=== PATIENT | male | born 1975 | race Caucasian/White ===

== ENCOUNTER 2020-03-21 21:51 | Emergency (ER) | payer OTHER ==
[2020-03-21] MEDS ORDERED: IBUPROFEN 800 MG TABLET PO ONE (22:50)
--- NOTE | 2020-03-21 22:52 | ER Document Report ---
ED Medical Screen (RME) - General Chief Complaint: Foot Pain Stated Complaint: POSSIBLE LEFT FOOT INJURY Time Seen by Provider: 03/21/20 22:45 Information source: Patient Notes: Presents complaining of left foot pain with swelling that started this evening. Patient has a history of gout although does not feel that his symptoms are typical of when he has had gout flareups in the past. Patient denies any foot injury. I have greeted and performed a rapid initial assessment of this patient. A comprehensive ED assessment and evaluation of the patient, analysis of test results and completion of the medical decision making process will be conducted by additional ED providers. - Related Data Allergies/Adverse Reactions: No Known Allergies Allergy (Unverified 03/21/20 22:42) Physical Exam - Vital signs Vitals: Temp Pulse Resp BP Pulse Ox 98.5 F 104 H 18 147/80 H 95 03/21/20 22:28 03/21/20 22:28 03/21/20 22:28 03/21/20 22:28 03/21/20 22:28 - General General appearance: Appears well, Alert Notes: Left midfoot tenderness with 1+ edema and mild erythema Course - Vital Signs Vital signs: Temp Pulse Resp BP Pulse Ox 98.5 F 104 H 18 147/80 H 95 03/21/20 22:28 03/21/20 22:28 03/21/20 22:28 03/21/20 22:28 03/21/20 22:28
[2020-03-21 23:35] LABS: ABSOLUTE BASOPHILS # (AUTO) 0.1 10^3/uL (0.0-0.2); ABSOLUTE EOSINOPHILS # (AUTO) 0.1 10^3/uL (0.0-0.6); ABSOLUTE LYMPHOCYTES (AUTO) 1.1 10^3/uL (0.5-4.7); ABSOLUTE MONOCYTES (AUTO) 0.6 10^3/uL (0.1-1.4); ABSOLUTE NEUT (AUTO) 11.8 10^3/uL (1.7-8.2); BASOPHILS % (AUTO) 0.7 % (0-2); EOSINOPHILS % (AUTO) 0.8 % (0-6); HEMATOCRIT 40.4 % (37.9-51.0); HEMOGLOBIN 14.3 g/dL (13.5-17.0); LYMPHOCYTES % (AUTO) 8.1 % (13-45); MEAN CORPUSCULAR HEMOGLOBIN 30.5 pg (27.0-33.4); MEAN CORPUSCULAR HGB CONC 35.5 g/dL (32.0-36.0); MEAN CORPUSCULAR VOLUME 86 fl (80-97); MONOCYTES % (AUTO) 4.6 % (3-13); PLATELET COUNT 301 10^3/uL (150-450); RED BLOOD COUNT 4.68 10^6/uL (4.35-5.55); RED CELL DISTRIBUTION WIDTH 13.4 % (11.5-14.0); SEGMENTED NEUTROPHILS % (AUTO) 85.8 % (42-78); TOTAL CELLS COUNTED % (AUTO) 100 %; WHITE BLOOD COUNT 13.7 10^3/uL (4.0-10.5)
[2020-03-21 23:58] LABS: C-REACTIVE PROTEIN 14.4 mg/L (<10.0); URIC ACID 9.1 mg/dL (3.5-8.5)
--- NOTE | 2020-03-22 00:02 | RADIOLOGY REPORT (SQ) ---
Left foot x-ray three views on 03/21/2020 at 11:29 PM CLINICAL INDICATION: Left foot pain COMPARISON: None FINDINGS: Degenerative changes are noted in the head of the first metatarsal. There are no fractures. Visualized joints are well aligned. No other bony abnormality is noted. IMPRESSION: No acute abnormality.
[2020-03-22 00:27] LABS: ERYTHROCYTE SEDIMENTATION RATE 7 mm/hr (0-15)
[2020-03-22] MEDS ORDERED: KETOROLAC TROMETHAMINE 60 MG/2 ML SDV IM ONE (02:38)
[2020-03-22] MEDS ORDERED: OXYCODONE-ACETAMINOPHEN 5-325 MG TABLET PO ONE (02:38)
--- NOTE | 2020-03-22 02:52 | ER Document Report ---
ED Extremity Problem, Lower - General Chief Complaint: Foot Pain Stated Complaint: POSSIBLE LEFT FOOT INJURY Time Seen by Provider: 03/21/20 22:45 Notes: CHIEF COMPLAINT: Left foot pain HPI: 45-year-old male with history of gout presenting with left foot pain redness and swelling that began tonight. States he normally gets gout in the toes of the feet but states it is further up the foot. He took no medications at home other than one Aleve. Has not had fever. Denies diabetes. States that he does not have a primary care provider in this area. Denies other complaints ROS: See HPI - all other systems were reviewed and are otherwise negative Constitutional: no fever Integumentary: + rash Allergy: no hives Musculoskeletal: + extremity pain or swelling Neurological: no numbness/tingling, no weakness MEDICATIONS: I agree with the patient medications as charted by the RN. ALLERGIES: I agree with the allergies as charted by the RN. PAST MEDICAL HISTORY/PAST SURGICAL HISTORY: Reviewed and agree as charted by RN. SOCIAL HISTORY: Reviewed and agree as charted by RN. FAMILY HISTORY: No significant familial comorbid conditions directly related to patient complaint EXAM: Reviewed vital signs as charted by RN. CONSTITUTIONAL: Alert and oriented and responds appropriately to questions. Well-appearing; well-nourished HEAD: Normocephalic; atraumatic EYES: Conjunctivae clear, sclerae non-icteric ENT: normal nose; no rhinorrhea; moist mucous membranes NECK: Supple without meningismus CARD: symmetric distal pulses RESP: Normal chest excursion without splinting or tachypnea ABD/GI: non-distended BACK: The back appears normal EXT: Normal ROM in all joints; no cyanosis, no effusions, there is slight edema over the dorsal left foot more prominent over the great toe distal metatarsal region. Mild tenderness on palpation no induration or fluctuant regions. Dorsalis pedis and posterior tibial pulses are present in the left foot and ankle. Sensation is intact in the toes with capillary refill less than 3 seconds SKIN: Normal color for age and race; warm; dry; good turgor; there is erythema overlying the distal dorsal and medial left foot NEURO: Moves all extremities equally; Motor and sensory function intact PSYCH: The patient's mood and manner are appropriate. Grooming and personal hygiene are appropriate. MDM: 45-year-old male history of gout presenting with left foot pain redness and swelling consistent with gout. Uric acid and CRP both mildly elevated. Low suspicion for cellulitis given the abrupt onset. Will place patient on pain medication and Indocin refer to primary care locally - Related Data Allergies/Adverse Reactions: No Known Allergies Allergy (Unverified 03/21/20 22:42) Past Medical History - General Information source: Patient - Social History Smoking Status: Never Smoker Family History: Reviewed & Not Pertinent Patient has homicidal ideation: No Physical Exam - Vital signs Vitals: Temp Pulse Resp BP Pulse Ox 98.5 F 104 H 18 147/80 H 95 03/21/20 22:28 03/21/20 22:28 03/21/20 22:28 03/21/20 22:28 03/21/20 22:28 Course - Vital Signs Vital signs: Temp Pulse Resp BP Pulse Ox 98.6 F 93 20 142/87 H 95 03/22/20 00:40 03/22/20 00:40 03/22/20 00:40 03/22/20 00:40 03/22/20 00:40 - Laboratory Result Diagrams: 03/21/20 23:22 Laboratory results interpreted by me: 03/21/20 03/21/20 23:22 23:22 WBC 13.7 H Lymph % (Auto) 8.1 L Absolute Neuts (auto) 11.8 H Seg Neutrophils % 85.8 H Uric Acid 9.1 H C-Reactive Protein 14.4 H Discharge - Discharge Clinical Impression: Gout of left foot Qualifiers: Gout etiology: unspecified cause Chronicity: acute Qualified Code(s): M10.9 - Gout, unspecified Condition: Stable Disposition: HOME, SELF-CARE Additional Instructions: Follow-up with your primary care provider for further evaluation and treatment take the medications as prescribed no driving if taking narcotics for pain. Return to the emergency department for onset of fever greater than 101 worsening redness or swelling of the foot. Prescriptions: Indomethacin [Indocin 25 Mg Capsule] 25 mg PO TID #21 capsule Oxycodone HCl/Acetaminophen [Percocet 5-325 mg Tablet] 1 tab PO Q4H PRN #15 tab PRN Reason:
[2020-03-22] MEDS ORDERED: IBUPROFEN 800 MG TABLET ONE (02:54)
[2020-03-22 03:15] VITALS: BP 145/88
== END 2020-03-22 03:12 | disposition home or self-care (01) ==
LOC: ER 21:51
DX: M10.9 Gout, unspecified (principal); M79.672 Pain in left foot
CPT/HCPCS: 99284; 96372; 36415; 84550; 85025; 85652; 86140; 73630; J1885